=== PATIENT | male | born 1995 | race Caucasian/White ===

== ENCOUNTER 2017-09-01 11:57 | Emergency (ER) | payer OTHER ==
[~2017-09-01] VITALS: Ht 188 cm; Wt 79.4 kg
[~2017-09-01 11:57] MED LIST: GADOVERSETAMIDE 2.5 MMOL/5 ML VIAL ONE
[2017-09-01] MEDS ORDERED: AMPH15TA2 PO (12:13)
[2017-09-01] MEDS ORDERED: DOXY100C2 PO (12:13)
--- NOTE | 2017-09-01 14:31 | NUR ---
Pt back from CT, denies pain.
--- NOTE | 2017-09-01 14:54 | NUR ---
TEXTED DR. HILLMAN FOR MRI APPROVAL.
[2017-09-01 15:03] LABS: BASOPHILS % (AUTO) 0.6 % (0.0-2.0); BILIRUBIN,DIRECT 0.2 mg/dL (0.0-0.2); BILIRUBIN,TOTAL 0.8 mg/dL (0.2-1.0); CREATININE 0.9 mg/dL (0.6-1.3); EOSINOPHILS # (AUTO) 0.1 K/uL (0.0-0.7); EOSINOPHILS % (AUTO) 1.7 % (0.0-7.0); HEMATOCRIT 45.9 % (36.7-47.1); HEMOGLOBIN 15.9 g/dL (12.5-16.3); LYMPHOCYTES # (AUTO) 1.5 K/uL (20.0-40.0); LYMPHOCYTES % (AUTO) 25.5 % (20.5-51.5); MEAN CORPUSCULAR HEMOGLOBIN 30.5 uug (23.8-33.4); MEAN CORPUSCULAR HGB CONC 35 g/dL (32.5-36.3); MONOCYTES # (AUTO) 0.5 K/uL (2.0-10.0); MONOCYTES % (AUTO) 8.3 % (0.0-11.0); NEUTROPHILS # (AUTO) 3.8 K/uL (1.8-8.9); NEUTROPHILS % (AUTO) 63.9 % (38.5-71.5); PLATELET COUNT (AUTO) 309 K/uL (152-348); POTASSIUM 3.9 mmol/L (3.5-5.1); RED BLOOD CELL COUNT(AUTO) 5.22 MIL/uL (4.06-5.63); TOTAL PROTEIN, SERUM 8.6 g/dL (6.4-8.2); WHITE BLOOD COUNT (AUTO) 5.9 K/uL (3.6-10.2)
--- NOTE | 2017-09-01 15:30 | NUR ---
Pt is talking on the phone, NAD noted. awaiting call for MRI jamie.
--- NOTE | 2017-09-01 15:53 | NUR ---
Spoke to Ky from MRI @ [facility]. Approval provided by Dr Chung. Awaiting call back from ky w/ time of MRI. Pt is aware of tx and agrees.
--- NOTE | 2017-09-01 16:01 | NUR ---
Called [facility] ETA for picking belt operator is 45 min. Pt is aware.
--- NOTE | 2017-09-01 16:07 | NUR ---
Pt signed consent for IV contrast.
--- NOTE | 2017-09-01 18:01 | NUR ---
Report provided to cold header operator. Pt left ER to MRI at [facility] in stable condition.
--- NOTE | 2017-09-01 21:43 | NUR ---
Removed IV intact, site okay, bandaged. Gave pt labs, Radiology reports & disks, and d/c instructions, verbalized understanding.
== END 2017-09-01 21:47 | disposition home or self-care (01) ==
LOC: ER 11:57
DX: R53.1 Weakness (principal); Z79.2 Long term (current) use of antibiotics; Z79.899 Other long term (current) drug therapy
CPT/HCPCS: 36415; 70450; 70553; 71045; 80048; 80076; 82962; 84484; 85025; 85730; 93005; 99291; A4663; A9579; 70030-TC